=== PATIENT | male | born 1990 | race Two or more races ===

== ENCOUNTER 2019-05-15 07:43 | Day surgery (SDC) | payer OTHER ==
[2019-05-15] VITALS (11 sets, daily range): BP systolic 127–141; BP diastolic 55–94
[~2019-05-15] VITALS: Ht 180.3 cm; Wt 111.1 kg
--- NOTE | 2019-05-15 07:07 | Pre-Procedure Note/Attestation ---
Pre-Procedure Note/Attestation Complete Prior to Procedure Planned Procedure: right Procedure Narrative: rt ankle scope, with debridement and open modified brostrom Indications for Procedure Pre-Operative Diagnosis: rt ankle instability Attestation I attest that I discussed the nature of the procedure; its benefits; risks and complications; and alternatives (and the risks and benefits of such alternatives ), prior to the procedure, with the patient (or the patient's legal customer service representative). I attest that, if there was a reasonable possibility of needing a blood transfusion, the patient (or the patient's legal customer service representative) was given the [facility] standardized written summary, pursuant to the [place] Blood Safety Act ([place] Health and Safety Code # 1645, as amended). I attest that I re-evaluated the patient just prior to the surgery and that there has been no change in the patient's H&P, except as documented below: none Marcello Dominguez MD May 15, 2019 07:06
[~2019-05-15 07:43] MED LIST: ceFAZolin 1gm IVPB IVPB ONE; celeBREX 200mg Cap **SURGERY PATIENTS ONLY ORAL ONE; oxyCONTIN 20mg tab ORAL ONE
[2019-05-15] MEDS ORDERED: oxyCONTIN 20mg tab ORAL ONE (08:31)
[2019-05-15] MEDS ORDERED: celeBREX 200mg Cap **SURGERY PATIENTS ONLY ORAL ONE (08:31)
[2019-05-15] MEDS ORDERED: Sodium Chloride 10ml vial INJ ONE (08:41)
[2019-05-15] MEDS ORDERED: Lidocaine 1% MPF 10mg/ml 5ml ONE (08:41)
[2019-05-15] MEDS ORDERED: Propofol 200mg/20ml IV ONE (08:41)
[2019-05-15] MEDS ORDERED: Dexamethasone 4mg/ml vial ONE (08:41)
[2019-05-15] MEDS ORDERED: Ketamine 500mg/10ml vial ONE (08:42)
[2019-05-15] MEDS ORDERED: fentaNYL 100 mcg/2 mL IV ONE ×2 (08:42→11:16)
[2019-05-15] MEDS ORDERED: LR 1000ml 1,000 ML IVLG SCH (09:06)
[2019-05-15] MEDS ORDERED: DiphenhydrAMINE 50mg/ml Inj IVP PRN (09:15)
[2019-05-15] MEDS ORDERED: Midazolam 2mg/2ml Inj IVP PRN (09:15)
[2019-05-15] MEDS ORDERED: LORazepam Inj 2mg/ml 1ml IV PRN (09:15)
[2019-05-15] MEDS ORDERED: fentaNYL 100 mcg/2 mL IV PRN (09:15)
[2019-05-15] MEDS ORDERED: Ketorolac 30mg Inj IV PRN ×2 (09:15)
[2019-05-15] MEDS ORDERED: Meperidine 25mg/0.5ml Inj (FOR RIGORS ONLY) IV PRN (09:15)
[2019-05-15] MEDS ORDERED: Atropine Sulfate 0.4mg/ml inj IVP PRN (09:15)
[2019-05-15] MEDS ORDERED: HYDROcodone/Acetamin 7.5/325 tab ORAL PRN (09:15)
[2019-05-15] MEDS ORDERED: Metoclopramide 10mg/2ml Inj IVP PRN (09:15)
[2019-05-15] MEDS ORDERED: Acetaminophen (Non formulary) 100 ML IV ONE (09:15)
[2019-05-15] MEDS ORDERED: oxyCODONE HCL/Acetaminophen 5/325mg ORAL PRN (09:15)
[2019-05-15] MEDS ORDERED: Hydromorphone 0.5mg/0.5ml inj IVP PRN (09:15)
[2019-05-15] MEDS ORDERED: HYDROcodone/Acetamin 5/325 tab ORAL PRN ×2 (09:15→10:30)
[2019-05-15] MEDS ORDERED: Labetalol 5mg/ml 20ml vial IV PRN (09:15)
--- NOTE | 2019-05-15 09:18 | Immediate Post-Op Evaluation ---
Immediate Post-Op Evalulation Immediate Post-Op Evalulation Procedure: R Ankle Arthroscopy Date of Evaluation: May 15, 2019 Time of Evaluation: 12:09 IV Fluids: 900 LR Blood Products: 0 Estimated Blood Loss: 12 Urinary Output: 0 Blood Pressure Systolic: 137 Blood Pressure Diastolic: 63 Pulse Rate: 75 Respiratory Rate: 16 O2 Sat by Pulse Oximetry: 99 Temperature (Fahrenheit): 98.2 Pain Score (1-10): 2 Nausea: No Vomiting: No Complications 0 Patient Status: awake, reacts, patent, extubated, none Hydration Status: adequate Dru Grams Ancef IV Given Within 1 Hr of Incision: Yes Time Given: 10:11 Zion Huber MD May 15, 2019 09:18
--- NOTE | 2019-05-15 09:18 | Anethesia Preoperative Eval ---
Anesthesia Pre-op PMH/ROS General Date of Evaluation: May 15, 2019 Time of Evaluation: 09:46 Anesthesiologist: Cecile ASA Score: ASA 2 Mallampati Score Class I : Soft palate, uvula, fauces, pillars visible Class II: Soft palate, uvula, fauces visible Class III: Soft palate, base of uvula visible Class IV: Only hard plate visible Mallampati Classification: Class II Surgeon: Alberto Diagnosis: R Ankle Sprain Surgical Procedure: R Ankle Arthroscopy Anesthesia History: none Family History: no anesthesia problems Allergies: Coded Allergies: No Known Allergies (Unverified , 05/14/19) Medications: see eMAR Patient NPO?: Yes Past Medical History Pulmonary: Reports: other - S/P Lung Infection Other: obesity - BMI 36 PSxH Narrative: Mandible SX, RIH Anesthesia Pre-op Phys. Exam Physician Exam Last Vital Signs Date Time Temp Pulse Resp B/P (MAP) Pulse Ox O2 Delivery O2 Flow Rate FiO2 05/15/19 08:40 Room Air 05/15/19 08:14 97.8 62 18 136/77 98 Constitutional: NAD Neurologic: CN 2-12 intact Cardiovascular: RRR Respiratory: CTA Gastrointestinal: S/NT/ND Airway Exam Mallampati Score: Class II MO: full ROM: limited Teeth: missing, intact Anesthesia Pre-op A/P Risk Assessment & Plan Assessment: ASA 2 Plan: GA, SED Status Change Before Surgery: No Pre-Antibiotics Dru Grams Ancef IV Given Within 1 Hr of Incision: Yes Time Given: 10:11 Zion Huber MD May 15, 2019 09:18
--- NOTE | 2019-05-15 09:19 | 48 Hour Post Anesthesia Eval ---
Post Anesthesia Evaluation Procedure: R Ankle Arthroscopy Date of Evaluation: May 15, 2019 Time of Evaluation: 14:22 Blood Pressure Systolic: 143 0: 82 Pulse Rate: 78 Respiratory Rate: 18 Temperature (Fahrenheit): 98.4 O2 Sat by Pulse Oximetry: 99 Airway: patent Nausea: No Vomiting: No Pain Intensity: 2 Hydration Status: adequate Cardiopulmonary Status: Stable Mental Status/LOC: patient returned to baseline Follow-up Care/Observations: 0 Post-Anesthesia Complications: 0 Follow-up care needed: ready to discharge Zion Huber MD May 15, 2019 09:19
[2019-05-15] MEDS ORDERED: LR 1000ml ONE (09:46)
[2019-05-15] MEDS ORDERED: Sterile Water Irrig 1000ml IRRIG ONE (09:46)
[2019-05-15] MEDS ORDERED: Bupivacaine w/Epi 0.5% 30ml Vial INJ ONE (09:55)
[2019-05-15] MEDS ORDERED: Tylenol #3 tab (300mg/30mg) ORAL PRN (10:30)
[2019-05-15] MEDS ORDERED: HYDROmorphone 1mg/ml Carpuject SUBQ PRN (10:30)
[2019-05-15] MEDS ORDERED: NS Irrig 4000ml IRRIG ONE (10:59)
--- NOTE | 2019-05-15 11:45 | Brief Operative Note ---
Immediate Post Operative Note Operative Note Chief Complaint: rt ankle injury Pre-op Diagnosis: rt ankle instability Procedure: rt ankle scope with debridement and open modified brostrom Post-op Diagnosis: same as pre-op Findings: consistent w/pre-op dx studies Surgeon: md josh Shipping Hand: marcy cardoso Anesthesiologist: md rebeca Anesthesia: general Specimen: none Complications: none Condition: stable Fluids: ns Estimated Blood Loss: minimal Drains: none Implant(s) used?: No Marcello Dominguez MD May 15, 2019 11:45
[2019-05-15] MEDS ORDERED: D5 1/2NS 1,000 ML IV SCH (17:00)
--- NOTE | 2019-05-15 17:15 | Operative Note - Dictated ---
DATE OF OPERATION: 05/15/2019 PREOPERATIVE DIAGNOSES: 1. Right ankle extensive scar tissue. 2. Right ankle instability. POSTOPERATIVE DIAGNOSES: 1. Right ankle extensive scar tissue over the lateral gutter with loosening of the anterior talofibular ligament with mid-substance tear that was scarred in. 2. Right ankle extensive scar tissue over the medial gutter. 3. No osteochondral defect of the ankle. PROCEDURE: 1. Right ankle arthroscopy and extensive intra-articular shaving. 2. Right ankle medial as well as the lateral gutter extensive debridement with resection of scar tissue. 3. Resection of scar tissue over the anterior aspect of the ankle from the neck of the talus up to the anterior tibial plafond lip. 4. Right ankle modified Brostrom procedure imbricating the anterior talofibular ligament and posterior talofibular ligament in [id number] manner. 5. Application of short leg posterior and sugar-tong splint. SURGEON: Marcello Dominguez M.D. [employer] FILTER TANK TENDER HEAD: Meghan Elaine ANESTHESIOLOGIST: Zion Huber M.D. ANESTHESIA: General LMA anesthesia. ESTIMATED BLOOD LOSS: Less than 20 mL. TOURNIQUET TIME: 1 hour and 10 minutes. COMPLICATIONS: None. BRIEF HISTORY: The patient is a pleasant 29-year-old gentleman who has had ongoing right ankle pain and instability after traumatic injury. He was treated nonoperatively and conservatively and he continued to have instability, giving away, and pain with swelling of the ankle. After full discussion of risks, benefits of the surgery and complications associated with it including infection, bleeding, neurovascular complication, possibility of continued pain, possibility of continued instability, possible need for surgery, and other complications that may arise, he opted for surgical treatment as described above. OPERATIVE PROCEDURE: The patient was brought to the operating table and was placed supine. All pressure points were well padded. General LMA anesthesia was induced and the right leg was placed in a countertraction leg renee that was well padded. The right leg was then prepped and draped in usual sterile fashion and was placed in the external traction device. The time-out was performed. Preoperative antibiotics were given and right leg was exsanguinated. Tourniquet was inflated to 275 mmHg. A standard medial portal was established just medial to the tibialis anterior. The joint was distended using 20 mL of 0.5% ropivacaine. The scope was then placed through the medial portal and the lateral portal was established under direct visualization. Tibiotalar arthroscopy was initiated. There was extensive synovitis over the lateral aspect of the ankle. The lateral gutter was visualized. This was completely filled with scar tissue and the tip of the lateral malleolus could not be seen. The talar dome was visualized. There was no evidence of osteochondral defect over the talar dome medially, laterally, or centrally. The posterior syndesmotic ligaments were visualized and within normal limits. The tibial plafond was visualized. This was within normal limits. The anterior tibial plafond and neck of the talus was visualized. There was extensive thick scar tissue over the anterior aspect of the tibiotalar joint. Medially, the medial gutter was filled with scar tissue. The tip of the medial malleolus could not be seen. The deltoid ligament could not be seen due to extensive scarring. At this point, the shaver was introduced and the extensive debridement of the lateral gutter was performed. Once this was performed, the lateral gutter was completely devoid of any scar tissue. The tip of the lateral malleolus could be visualized. The remnant of the anterior talofibular ligament could be probed and appeared to be loose. At this point, a shaver was used to extensively debride the anterior scar tissue that was from anterior lip of the tibial plafond to the neck of the talus. This was debrided to all the way back to the capsule. At this point, the medial gutter was visualized. It was very hard to see the medial gutter and the scope would not reach it from the lateral portal. Therefore, the scope was placed in the lateral portal and using the medial portal as a working portal, the medial gutter was then debrided extensively using a shaver. The deltoid ligament was visualized and appeared to be intact. The medial gutter was completely open. There was no loose fragments at the tip of the medial malleolus or lateral malleolus. The medial and lateral gutters were then cleaned out. There was no evidence of scar tissue. At this point, the care was given to the Brostrom portion of the procedure. The scope was removed. The countertraction device was removed. The distal portion of the fibula and anterior portion of the fibula was visualized and palpated. An incision was made approximately 1 cm distal to the fibula. The incision was taken through the subcutaneous tissue. Care was given to retract the cutaneous nerves. The extensor retinaculum was then identified and the anterior talofibular ligament and posterior talofibular ligaments were identified. There was extensive scar tissue over the area. Using a knife, the ligament was cut at its mid surface. The attachment on to the fibula was examined and appeared to be intact. The attachment of the talus was examined and was intact although the ligament was stretched and very loose. Therefore, decision was made to do imbrication of the ligament using [id number] technique. Using #2 FiberWire sutures, 2 horizontal mattress [id number] sutures were placed with tightening of the anterior talofibular and posterior talofibular ligament. The foot was placed in neutral dorsiflexion and neutral eversion and the ligament was tightened and sutures were tied. This provided excellent stability to the talofibular ligament with good range of motion of the ankle. Anterior drawer at 0 and 30 degrees of plantar flexion was stable. The wounds were thoroughly irrigated using copious amount of fluid. The wound was injected with 0.5% Marcaine with epinephrine. The subcutaneous tissue was closed using 2-0 Vicryl suture and skin was closed using 3-0 Monocryl suture. Sterile dressing was applied and Steri-Strips were applied. A posterior splint with a sugar-tong splint was applied. The patient was taken to recovery room in stable condition. All lap counts and instrument counts were correct. The tourniquet was deflated at the end of the procedure. Marcello Dominguez M.D. DR: SAMMY JOB#: [id number] CC:
== END 2019-05-15 14:20 | disposition home or self-care (01) ==
LOC: SUR 07:43
DX: M25.371 Other instability, right ankle (principal)
CPT/HCPCS: 27698; 29898; J0131; J0690; J1100; J2250; J2405; J2704; J3010; J3490; J7120; 94003; 94150